=== PATIENT | male | born 1950 | race Caucasian/White ===

== ENCOUNTER → 2017-03-01 | Outpatient (CLI) | payer BC ==
[~2017-03-01] MED LIST: ASPEC325 PO
--- NOTE | 2017-03-01 10:54 | DIAGNOSTIC IMAGING REPORT ---
KUB CLINICAL HISTORY: N40.1 Benign prostatic hyperplasia with urinary obstruction RAD nephrocalcinosis COMPARISON STUDY: 05/08/2016 FINDINGS: The soft tissues, psoas shadows, renal outlines and intestinal gas pattern appear normal. There is no evidence for bowel obstruction. No abnormal abdominal calcifications are seen. Several pelvic vascular calcifications unchanged IMPRESSION: Normal study. No evidence for nephrocalcinosis The above report was generated using voice recognition software. It may contain grammatical, syntax or spelling errors. Electronically signed by: Jordy Melendez M.D. 03/01/2017 10:53 AM Dictated Date/Time: 03/01/2017 10:51 AM
== END | disposition home or self-care (01) ==
LOC: C.RAD 10:16
PROVIDERS: ATTEND Urology
DX: N20.0 Calculus of kidney (principal); N40.1 Benign prostatic hyperplasia with lower urinary tract symptoms

== ENCOUNTER → 2017-03-30 | Outpatient (CLI) | payer BC ==
--- NOTE | 2017-03-30 12:19 | DIAGNOSTIC IMAGING REPORT ---
KUB CLINICAL HISTORY: 66 years-old Male presenting with nephrolithiasis, right-sided. TECHNIQUE: Single supine view of the abdomen was obtained. COMPARISON: 03/01/2017. FINDINGS: Mild stool burden and bowel gas to greater evaluation of the kidneys. Allowing for this limitation, no convincing evidence of calcification to suggest nephrolithiasis. Nonobstructive bowel gas pattern. No gross pneumoperitoneum. Osseous structures normal. Lung bases clear. Multiple pelvic phleboliths noted. IMPRESSION: 1. Evaluation of the kidneys limited by stool and bowel gas. Within this limitation, no radiographic evidence of nephrolithiasis. Electronically signed by: Jhon Fields M.D. 03/30/2017 12:18 PM Dictated Date/Time: 03/30/2017 12:16 PM
== END | disposition home or self-care (01) ==
LOC: C.RAD 11:52
PROVIDERS: ATTEND Urology
DX: N20.0 Calculus of kidney (principal)

== ENCOUNTER → 2018-03-28 | Outpatient (CLI) | payer OTHER ==
--- NOTE | 2018-03-28 13:16 | DIAGNOSTIC IMAGING REPORT ---
KUB HISTORY: Follow-up study in a patient with nephrolithiasis N20.0 [id number] COMPARISON: K[facility] 03/30/2017. FINDINGS: The bowel gas pattern is non-obstructive. There is no organomegaly. No definite nephrolithiasis or ureteral calculi identified. Calcifications of the pelvis suggest phleboliths. Renal shadows are partially obscured by bowel gas. No pneumoperitoneum or pneumatosis. No fracture. IMPRESSION: No definite renal or ureteral calculi identified. Electronically signed by: Ramón Jha M.D. 03/28/2018 1:14 PM Dictated Date/Time: 03/28/2018 1:10 PM
== END | disposition home or self-care (01) ==
LOC: C.RAD 12:09
PROVIDERS: ATTEND Urology
DX: N20.0 Calculus of kidney (principal)